=== PATIENT | female | born 1985 | race Caucasian/White ===

== ENCOUNTER 2024-06-12 07:15 | Outpatient (CLI) | payer BC | END 2024-06-12 07:16 | disposition home or self-care (01) | LOC: CSHCT 07:15 | PROVIDERS: ATTEND Urology | DX: N20.0 Calculus of kidney (principal); K57.30 Diverticulosis of large intestine without perforation or abscess without bleeding; K76.0 Fatty (change of) liver, not elsewhere classified; N28.9 Disorder of kidney and ureter, unspecified | CPT/HCPCS: 74176 ==

== ENCOUNTER 2024-06-18 18:47 | Inpatient (IN) | payer BC ==
[~2024-06-18 18:47] MED LIST: Iopamidol 300 61% 100 ML VIAL FS ONE
[2024-06-18] MEDS ORDERED: Morphine 4 MG/ML VIAL ONE ×2 (19:59→23:18)
[2024-06-18] MEDS ORDERED: Cefepime 2 GM VIAL ONE (20:00)
[2024-06-18 20:20] LABS: #Basophils 0.04 10x3/uL (0.0-0.2); #Eosinphils 0.08 10x3/uL (0.0-0.5); #Monocytes 1.13 10x3/uL (0.0-1.1); #Neutrophils 15.68 10x3/uL (1.5-8.4); %Basophils 0.2 % (0.0-2.0); %Eosinophils 0.4 % (0.0-6.0); %Lymphocytes 10.8 % (18.0-47.0); %Monocytes 5.9 % (0.0-10.0); %Neutrophils 81.9 % (40.0-75.0); Hematocrit 34.6 % (34.9-44.5); Hemoglobin 11.1 g/dL (12.0-15.5); Mean Corpuscular HGB CONC 32.1 g/dL (32.0-36.0); Mean Corpuscular Hemoglobin 26.6 pg (27.0-33.0); Mean Corpuscular Volume 82.8 fL (81.6-98.3); Mean Platelet Volume 9.7 fL (7.4-10.4); Platelet Count 468 10x3/uL (150-450); RBC Distribution Width 15.3 % (11.5-14.5); Red Blood Cell (RBC) Count 4.18 10x6/uL (3.90-5.03); White Blood Cell (WBC) Count 19.1 10x3/uL (3.5-10.5)
[2024-06-18 20:32] LABS: ALT (SGPT) 10 U/L (8-55); AST (SGOT) 12 U/L (5-34); Albumin 3.7 g/dL (3.5-5.0); Alkaline Phosphatase 93 U/L (40-110); Anion Gap 16 mmol/L (10-20); BUN (Urea Nitrogen) 11 mg/dL (7.0-18.7); Bilirubin, Total 0.3 mg/dL (0.2-1.2); Calc. Creatinine Clearance 0 mL/min (70-130); Calcium 9.5 mg/dL (7.8-10.44); Carbon Dioxide 21 mmol/L (22-29); Chloride 100 mmol/L (98-107); Estimated GFR 82; Globulin 4.4 g/dL (2.4-3.5); Glucose 130 mg/dL (70-105); Potassium 3.6 mmol/L (3.5-5.1); Protein, Total 8.1 g/dL (6.0-8.3); Sodium 133 mmol/L (136-145)
[2024-06-18 21:53] LABS: Bilirubin Neg (Negative); Blood, Urine 25 (Negative); Clarity Clear (Clear); Glucose, Urine (Dipstick) Normal (Negative); Ketone, Urine Negative (Negative); Leukocyte 500 (Negative); Nitrite Negative (Negative); Protein, Urine (Dipstick) 15 mg/dl (Neg-Trace); Urobilinogen Normal mg/dL (Less than 2)
[2024-06-18 22:30] LABS: CAUTI Indications for Culture Pelvic or flank pain
[2024-06-18 22:31] LABS: Bacteria/HPF 2+ HPF (None Seen); Squamous Epithelial 0-3 HPF (0-3)
[2024-06-18 22:33] LABS: Transitional Epithelial 0-3 HPF (None Seen)
[2024-06-18 22:34] LABS: Mucous/LPF Rare LPF (<2+)
[2024-06-18 22:35] LABS: Urine Culture Reflex Yes Yes
[2024-06-19] MEDS ORDERED: Morphine 4 MG/ML VIAL ONE (01:21)
[2024-06-19] MEDS ORDERED: Potassium Chloride 20 MEQ TAB ONE (01:21)
[2024-06-19] MEDS ORDERED: Acetaminophen 325 MG TAB ONE (01:21)
[2024-06-19] MEDS: Acetaminophen 325 MG TAB PO PRN (01:35)
[2024-06-19] MEDS: Morphine 4 MG/ML VIAL SLOW IVP PRN (01:35)
[2024-06-19] MEDS ORDERED: Ibuprofen 200 MG TAB ONE ×2 (03:19→03:43)
[2024-06-19] MEDS: Potassium Chloride 20 MEQ TAB PO SCH (03:44)
[2024-06-19] MEDS: Sodium Chloride 0.9% 1,000 ML IV SCH (03:44)
[2024-06-19] MEDS: Ibuprofen 800 MG TAB PO SCH (03:45)
[2024-06-19 05:59] LABS: #Basophils 0.04 10x3/uL (0.0-0.2); #Eosinphils 0.05 10x3/uL (0.0-0.5); #Neutrophils 13.34 10x3/uL (1.5-8.4); %Basophils 0.2 % (0.0-2.0); %Eosinophils 0.3 % (0.0-6.0); %Lymphocytes 10.7 % (18.0-47.0); %Monocytes 8.9 % (0.0-10.0); %Neutrophils 79.2 % (40.0-75.0); Hemoglobin 10.1 g/dL (12.0-15.5); Mean Corpuscular HGB CONC 31.6 g/dL (32.0-36.0); Mean Corpuscular Hemoglobin 26.4 pg (27.0-33.0); Mean Corpuscular Volume 83.8 fL (81.6-98.3); Mean Platelet Volume 9.6 fL (7.4-10.4); Platelet Count 360 10x3/uL (150-450); RBC Distribution Width 15.4 % (11.5-14.5); Red Blood Cell (RBC) Count 3.82 10x6/uL (3.90-5.03); White Blood Cell (WBC) Count 16.9 10x3/uL (3.5-10.5)
[2024-06-19 06:31] LABS: Anion Gap 12 mmol/L (10-20); BUN (Urea Nitrogen) 7 mg/dL (7.0-18.7); Calc. Creatinine Clearance 0 mL/min (70-130); Calcium 8.1 mg/dL (7.8-10.44); Carbon Dioxide 20 mmol/L (22-29); Chloride 109 mmol/L (98-107); Estimated GFR 109; Glucose 106 mg/dL (70-105); Magnesium 1.8 mg/dL (1.6-2.6); Potassium 3.8 mmol/L (3.5-5.1); Sodium 137 mmol/L (136-145)
[2024-06-19] MEDS ORDERED: Cefepime 2 GM VIAL ONE (06:41)
[2024-06-19] MEDS: Cefepime 2 GM in Sodium Chloride 0.9% 100 ML IVPB SCH (06:48)
[2024-06-19] MEDS ORDERED: Cefepime 2 GM in Sodium Chloride 0.9% 100 ML IVPB SCH (08:00)
[2024-06-19] MEDS ORDERED: metFORMIN 500 MG TAB ONE (09:20)
[2024-06-19] MEDS ORDERED: Enoxaparin 40 MG (0.4 mL) SYRINGE ONE (09:20)
[2024-06-19] MEDS ORDERED: Losartan 25 MG TAB ONE (09:21)
[2024-06-19] MEDS: Enoxaparin 40 MG (0.4 mL) SYRINGE SC SCH (09:56)
[2024-06-19] MEDS: metFORMIN 500 MG TAB PO SCH (09:56)
[2024-06-19] MEDS: Losartan 50 MG TAB PO SCH (09:57)
[2024-06-19] MEDS ORDERED: Ketorolac Tromethamine 30 MG (1 mL) VIAL ONE (12:12)
[2024-06-19] MEDS: Saccharomyces boulardii 250 MG CAP PO SCH (12:13)
[2024-06-19] MEDS: Ketorolac Tromethamine 30 MG (1 mL) VIAL IVP PRN (12:19)
[2024-06-19] MEDS: Lactated Ringer's 1,000 ML IV SCH (13:31)
[2024-06-19 15:10] VITALS: BMI 36.3
[2024-06-20 04:29] LABS: #Basophils 0.04 10x3/uL (0.0-0.2); #Eosinphils 0.18 10x3/uL (0.0-0.5); #Monocytes 1.46 10x3/uL (0.0-1.1); #Neutrophils 10.61 10x3/uL (1.5-8.4); %Basophils 0.3 % (0.0-2.0); %Eosinophils 1.2 % (0.0-6.0); %Lymphocytes 19.4 % (18.0-47.0); %Monocytes 9.5 % (0.0-10.0); %Neutrophils 68.9 % (40.0-75.0); Hematocrit 32.1 % (34.9-44.5); Mean Corpuscular HGB CONC 31.2 g/dL (32.0-36.0); Mean Corpuscular Hemoglobin 26.5 pg (27.0-33.0); Mean Corpuscular Volume 85.1 fL (81.6-98.3); Platelet Count 377 10x3/uL (150-450); RBC Distribution Width 15.4 % (11.5-14.5); Red Blood Cell (RBC) Count 3.77 10x6/uL (3.90-5.03); White Blood Cell (WBC) Count 15.4 10x3/uL (3.5-10.5)
[2024-06-20 04:49] LABS: Anion Gap 15 mmol/L (10-20); BUN (Urea Nitrogen) 7 mg/dL (7.0-18.7); Calc. Creatinine Clearance 150 mL/min (70-130); Calcium 9.1 mg/dL (7.8-10.44); Carbon Dioxide 23 mmol/L (22-29); Chloride 106 mmol/L (98-107); Estimated GFR 105; Glucose 105 mg/dL (70-105); Potassium 3.9 mmol/L (3.5-5.1); Sodium 140 mmol/L (136-145)
[2024-06-20] MEDS: Saccharomyces boulardii 250 MG CAP PO SCH (08:20)
[2024-06-20] MEDS: Pantoprazole DR 40 MG TAB PO SCH (20:32)
[2024-06-21 04:59] LABS: #Basophils 0.08 10x3/uL (0.0-0.2); #Eosinphils 0.28 10x3/uL (0.0-0.5); #Neutrophils 7.34 10x3/uL (1.5-8.4); %Basophils 0.7 % (0.0-2.0); %Eosinophils 2.3 % (0.0-6.0); %Lymphocytes 27.5 % (18.0-47.0); %Monocytes 7.5 % (0.0-10.0); %Neutrophils 61.3 % (40.0-75.0); Hematocrit 31.7 % (34.9-44.5); Hemoglobin 10.1 g/dL (12.0-15.5); Mean Corpuscular HGB CONC 31.9 g/dL (32.0-36.0); Mean Corpuscular Hemoglobin 26.6 pg (27.0-33.0); Mean Corpuscular Volume 83.6 fL (81.6-98.3); Mean Platelet Volume 9.7 fL (7.4-10.4); Platelet Count 415 10x3/uL (150-450); RBC Distribution Width 15.1 % (11.5-14.5); Red Blood Cell (RBC) Count 3.79 10x6/uL (3.90-5.03)
[2024-06-21 05:20] LABS: Anion Gap 17 mmol/L (10-20); BUN (Urea Nitrogen) 6 mg/dL (7.0-18.7); Calc. Creatinine Clearance 156 mL/min (70-130); Calcium 9.2 mg/dL (7.8-10.44); Carbon Dioxide 21 mmol/L (22-29); Chloride 106 mmol/L (98-107); Estimated GFR 111; Glucose 89 mg/dL (70-105); Potassium 3.8 mmol/L (3.5-5.1); Sodium 140 mmol/L (136-145)
[2024-06-21] MEDS: Pantoprazole DR 40 MG TAB PO SCH (08:30)
[2024-06-21] MEDS: cefTRIAXone\\ROCEPHIN 2 GM in Sodium Chloride 0.9% 100 ML IVPB SCH (17:27)
[2024-06-22 04:44] LABS: #Basophils 0.06 10x3/uL (0.0-0.2); #Eosinphils 0.24 10x3/uL (0.0-0.5); #Neutrophils 6.12 10x3/uL (1.5-8.4); %Basophils 0.6 % (0.0-2.0); %Eosinophils 2.3 % (0.0-6.0); %Lymphocytes 30.2 % (18.0-47.0); %Monocytes 6.8 % (0.0-10.0); %Neutrophils 59.7 % (40.0-75.0); Hematocrit 31.6 % (34.9-44.5); Hemoglobin 10.1 g/dL (12.0-15.5); Mean Corpuscular Hemoglobin 26.5 pg (27.0-33.0); Mean Corpuscular Volume 82.9 fL (81.6-98.3); Mean Platelet Volume 9.4 fL (7.4-10.4); Platelet Count 490 10x3/uL (150-450); RBC Distribution Width 14.8 % (11.5-14.5); Red Blood Cell (RBC) Count 3.81 10x6/uL (3.90-5.03); White Blood Cell (WBC) Count 10.3 10x3/uL (3.5-10.5)
[2024-06-22 05:02] LABS: Anion Gap 18 mmol/L (10-20); BUN (Urea Nitrogen) 9 mg/dL (7.0-18.7); Calc. Creatinine Clearance 152 mL/min (70-130); Calcium 9.4 mg/dL (7.8-10.44); Carbon Dioxide 22 mmol/L (22-29); Chloride 105 mmol/L (98-107); Estimated GFR 107; Glucose 85 mg/dL (70-105); Magnesium 2.1 mg/dL (1.6-2.6); Potassium 3.7 mmol/L (3.5-5.1); Sodium 141 mmol/L (136-145)
[2024-06-22 07:44] VITALS: BP 131/94; TEMP 97
== END 2024-06-22 09:35 | disposition home or self-care (01) | DRG 872 ==
LOC: CSHERS 18:47 → CSHERHOLD 06-19 00:25 → CSHTELE 06-19 14:51
PROVIDERS: ADMIT Family Medicine; ATTEND Nurse Practitioner Family
DX: A41.9 Sepsis, unspecified organism (principal); I10 Essential (primary) hypertension; N10 Acute pyelonephritis; K21.9 Gastro-esophageal reflux disease without esophagitis; E28.2 Polycystic ovarian syndrome; Z82.49 Family history of ischemic heart disease and other diseases of the circulatory system; Z79.84 Long term (current) use of oral hypoglycemic drugs; Z79.899 Other long term (current) drug therapy
CPT/HCPCS: 36415; 74177; 80048; 80053; 81001; 83605; 83735; 85025; 87040; 87086; 93005; 96374; 96375; 96376; J0692; J0696; J1650; J1885; J2272; J7030; J7120; Q9967

== ENCOUNTER 2024-10-28 13:38 | Outpatient (CLI) | payer BC | END 2024-10-28 13:39 | disposition home or self-care (01) | LOC: CSHCT 13:38 | PROVIDERS: ATTEND Urology | DX: N20.0 Calculus of kidney (principal); N28.89 Other specified disorders of kidney and ureter; D17.71 Benign lipomatous neoplasm of kidney; K76.0 Fatty (change of) liver, not elsewhere classified; K76.9 Liver disease, unspecified | CPT/HCPCS: 74176 ==